=== PATIENT | female | born 1950 | race Caucasian/White ===

== ENCOUNTER 2017-03-30 11:43 | Emergency (ER) | payer MEDICARE, OTHER | END 2017-03-30 13:01 | disposition home or self-care (01) | LOC: FER 11:43 | DX: B37.49 Other urogenital candidiasis (principal); I10 Essential (primary) hypertension; K21.9 Gastro-esophageal reflux disease without esophagitis; E78.00 Pure hypercholesterolemia, unspecified; E07.9 Disorder of thyroid, unspecified; Z88.0 Allergy status to penicillin; Z88.1 Allergy status to other antibiotic agents; Z79.899 Other long term (current) drug therapy | CPT/HCPCS: 99282 ==